=== PATIENT | male | born 1940 | race Caucasian/White ===

== ENCOUNTER → 2017-05-23 | Outpatient (CLI) | payer MEDICARE, BC ==
--- NOTE | 2017-05-24 14:44 | PCVCIMAG ---
APPROVED REPORT Exam: Nuclear Stress Test Indication: CAD Patient Location: Out-Patient Stress Nurse: Johana Cruz RN, Arlette Geronimo RN [place] Tech:Evelyne WuDREW suggs Ht: 5 ft 11 in Wt: 165 lbs BSA: 1.94 m2 HR: 54 bpm BP: 122/78 mmHg BMI: 23.0 Rhythm: SR, First degree AV Block Medical History Medical History: Hyperlipidemia, HTN, CAD Medications: Plavix, lipitor, lisinopril Allergies: No known drug allergies Cardiac Risk Factors: Age Previous Cardiac Procedures: PCI Pretest Chest Pain Characteristics: No chest pain Exercise History: Physically active NM EXAM: Myocardial Perfusion REST/STRESS Imaging Protocol: Rest Tc-99m/Stress Tc-99m 1 day Resting Data Rest SPECT myocardial perfusion imaging was performed in supine position 45 minutes following the intravenous injection of 9.2 mCi of Tc-99m Sestamibi. Time of rest injection: 929 Date: 05/23/2017 Pharmacologic Stress Pharmacologic stress test was performed by injecting Regadenoson 0.4 mg IV push followed by the intravenous injection of 28.1 mCi of Tc-99m Sestamibi. Time of stress injection: 1030 Exercise Stress At peak stress, the patient was injected intravenously with 28.1mCi of Tc-99m Sestamibi. Time of stress injection: 1030 Date: 05/23/2017 Administration Route: IV Administration Site: Right Hand Patient continued to exercise for 1 minute(s). Gated Stress SPECT was performed 45 minutes after stress injection. The images were gated to evaluate regional wall motion and calculate left ventricular ejection fraction. Study Quality Study: Good Study Data Post stress, the left ventricular ejection was 70%.. SSS: 3 SRS: 5 SDS: 1 TID = 0.96. Perfusion No evidence of stress induced ischemia or prior myocardial infarction. Wall Motion Normal left ventricular size and function with no regional wall motion abnormalities. Nuclear Conclusion No evidence of stress induced ischemia or prior myocardial infarction. Normal left ventricular size and function with no regional wall motion abnormalities. Post stress, the left ventricular ejection was 70%.. No prior study available for comparison. Interpreted by: Mati Al MD Electronically Approved: 05/23/2017 23:41:44 Stress Test Details Stress Test: Exercise stress testing was performed using a Tim protocol. HR Resting HR: 54 bpmMax Heart Rate (APMHR): 143 bpm Max HR Achieved: 131 bpmTarget HR (85% APMHR): 121 bpm % of APMHR: 91 Recovery HR: 62 bpm BP Resting BP: 122/78 mmHg Max BP: 156/78 mmHg Recovery BP: 153/69 mmHg ECG Resting ECG: Sinus bradycardia with 1st degree AV block Stress ECG: Sinus tachycardia with 1st degree AV block Recovery ECG: Sinus rhythm with 1st degree AV block Clinical Reason for Termination: Dyspnea, Fatigue Stress Symptoms: Dyspnea, Fatigue Exercise duration: 9 min 30 sec Exercise capacity: 11.7 METs Symptoms resolved during recovery. Stress ECG Conclusion 1 SUBJECTIVELY NEGATIVE FOR ISCHEMIA 2. ELECTROCARDIOGRAPHICALLY NEGATIVE FOR ISCHEMIA 3. ADEQUATE FUNCTIONAL CAPACITY <Conclusion> 1 SUBJECTIVELY NEGATIVE FOR ISCHEMIA 2. ELECTROCARDIOGRAPHICALLY NEGATIVE FOR ISCHEMIA 3. ADEQUATE FUNCTIONAL CAPACITY
== END | disposition home or self-care (01) ==
LOC: PCVCIMAG 08:54
PROVIDERS: ATTEND Internal Medicine
DX: I25.10 Atherosclerotic heart disease of native coronary artery without angina pectoris (principal); I44.0 Atrioventricular block, first degree; I10 Essential (primary) hypertension; E78.5 Hyperlipidemia, unspecified; Z79.899 Other long term (current) drug therapy
CPT/HCPCS: 78452; 93017; A9500